=== PATIENT | female | born 1975 | race Hispanic/Latino ===

== ENCOUNTER 2018-01-14 11:10 | Emergency (ER) | payer OTHER ==
[~2018-01-14] VITALS: Ht 162.6 cm; Wt 68.0 kg
[~2018-01-14 11:10] MED LIST: NEXIUM40 M1 PO
[2018-01-14 12:10] LABS: INFLUENZA A NONE DETECTED (NONE DETECT); INFLUENZA B POSITIVE (NONE DETECT)
[2018-01-14] MEDS ORDERED: TYLENOL # 31 TA1 PO (12:37)
[2018-01-14] MEDS ORDERED: VENTOLIN HFA IN (12:37)
[2018-01-14] MEDS ORDERED: PREDNISONE50 MG PO (12:37)
[2018-01-14] MEDS ORDERED: TAM75CAP PO (12:37)
[2018-01-14 12:53] VITALS: BP 124/80
== END 2018-01-14 12:53 | disposition home or self-care (01) | DRG 195 ==
LOC: ED 11:10
PROVIDERS: Emergency Medicine
DX: J10.1 Influenza due to other identified influenza virus with other respiratory manifestations (principal); R05 Cough; R06.2 Wheezing; R11.2 Nausea with vomiting, unspecified; R50.9 Fever, unspecified